=== PATIENT | female | born 1955 | race Caucasian/White ===

== ENCOUNTER → 2017-01-08 | Outpatient (CLI) | payer OTHER ==
--- NOTE | 2017-01-09 14:40 | MR ---
EXAM DATE: 01/08/17 PATIENT'S AGE: 61 Patient: AVNI LU Facility: [place], [place] : 1955 Study: MRI Shoulder Right [id number] 7:00:40 PM Ordering Physician: Gianluca Ruiz Pa-C Final Report: Indication: Right shoulder dislocation. Prior fall. Technique: Axial, sagittal oblique and coronal oblique T1, proton density, proton density fat-sat and T2 weighted images were obtained of the right shoulder without contrast administration. Comparison: Radiographs 12/02/2016. Findings: Rotator Cuff: Mild thinning of the distal supraspinatus and infraspinatus tendons. Mild tendinosis of the distal supraspinatus and moderate focal tendinosis of the distal infraspinatus tendon. There is no full-thickness tear of either distal tendon nor is there supraspinatus or infraspinatus muscle atrophy. Mild distal subscapularis tendinosis. No high-grade subscapularis tendon tear or muscle atrophy. . AC Joint and Coracoacromial Arch: Advanced AC joint degenerative arthrosis. Coracoclavicular ligament is intact. Acromial morphology is intermediate between type 2 and type 3. There is mild thickening of the coracoacromial ligament. No os acromiale. The lateral acromial thickness is approximately 6-7 mm. The acromiohumeral interval measures 6 mm. Minor subacromial-subdeltoid bursal edema. The subcoracoid interval is adequate patent. Minor subcoracoid bursal edema. . Biceps-Labral Complex: There is attenuation of the proximal intraarticular long head of the biceps tendon which is not clearly seen as an intact structure over its proximal intraarticular extent. Probable prior tearing of the superior and posterior superior aspects of the labrum with labral fraying. The anterior- inferior labrum is not well evaluated given the lack of joint distention and close approximation of the anterior band of the inferior glenohumeral ligament though appears grossly intact. The posterior to posterior-inferior labrum appears intact. . Glenohumeral Joint Space: No effusion. No significant malalignment. No focal articular cartilage defect. . Bones and Soft Tissues: There is an acute or subacute impaction fracture involving the posterior aspect of the humeral head with associated marrow edema. This supports changes related to a prior anterior shoulder dislocation. There is no bony Bankart fracture. No abnormality within the suprascapular or spinoglenoid notches nor within the quadrilateral space. Impression: 1. Mild impaction fracture involving the posterior aspect of the right humeral head likely related to prior anterior shoulder dislocation. 2. Tendinosis of the rotator cuff tendons with thinning of the distal supraspinatus and infraspinatus tendons but no full-thickness rotator cuff tear. 3. Likely chronically torn proximal long head of the biceps tendon. 4. More remote tearing of the superior to posterior superior labrum. The anterior-inferior labrum is not well evaluated given the lack of joint distention and close approximation of the anterior band of the inferior glenohumeral ligament though appears grossly intact. 5. Advanced AC joint degenerative arthrosis changes. Dictated by Lizandro Quan MD @ Jan 09 2017 9:58AM (Electronic Signature) Report Signed by Proxy and Original Signed Document filed in the Medical Record. KEEGAN
== END ==
LOC: MW.MRI 16:10
PROVIDERS: ATTEND Physician Assistant
DX: S43.004A Unspecified dislocation of right shoulder joint, initial encounter (principal); S42.201A Unspecified fracture of upper end of right humerus, initial encounter for closed fracture; M75.101 Unspecified rotator cuff tear or rupture of right shoulder, not specified as traumatic; M25.511 Pain in right shoulder
CPT/HCPCS: 73221-26-RT; 73221-RT

== ENCOUNTER 2020-07-25 08:03 | Day surgery (SDC) | payer OTHER ==
[~2020-07-25 08:03] MED LIST: Lactated Ringers 1,000 ML IV SCH; Lidocaine 2% 5 ML SDV ONE; Propofol 200 MG/20 ML SDV ONE; Sodium Chloride 0.9% 10 ML SDV IV PRN; Sodium Chloride 0.9% 10 ML Syringe FLUSH PRN; Sodium Chloride 0.9% 2.5 ML Syringe FLUSH PRN; fentaNYL 100 MCG/2 ML SDV ONE
--- NOTE | 2020-07-25 08:55 | PCM.PREANE ---
Preanesthetic Assessment - Anesthesia/Transfusion/Family Hx Anesthesia History: Prior Anesthesia Without Reaction Other Type of Anesthesia Reaction Comment: Denies any known problem with anesthesia in past Family History of Anesthesia Reaction: No Transfusion History: Prior Transfusion Without Reaction - Review of Systems General: No Symptoms Pulmonary: No Symptoms Cardiovascular: No Symptoms Gastrointestinal: No Symptoms Neurological: No Symptoms Other: Reports: None - Physical Assessment NPO Status Date: 07/24/20 Vital Signs: Last Vital Signs Temp 96.8 F L 07/25/20 08:25 Pulse 95 07/25/20 08:25 Resp 15 07/25/20 08:25 BP 141/91 H 07/25/20 08:25 Pulse Ox 95 07/25/20 08:25 Height: 5 ft 1 in Weight: 96.615 kg ASA Class: 2 Mental Status: Alert & Oriented x3 Airway Class: Mallampati = 2 Dentition: Reports: Normal Dentition ROM/Head Extension: Full Lungs: Clear to Auscultation, Normal Respiratory Effort Cardiovascular: Regular Rate, Regular Rhythm - Allergies Allergies/Adverse Reactions: Allergies Allergy/AdvReac Type Severity Reaction Status Date / Time codeine Allergy Difficulty Verified 07/19/20 10:54 Breathing hydromorphone HCl Allergy Anaphylactic Verified 07/19/20 10:54 [From Dilaudid] Shock meperidine HCl [From Demerol] Allergy Difficulty Verified 07/19/20 10:54 Breathing morphine Allergy Anaphylactic Verified 07/19/20 10:54 Shock penicillin Allergy Difficulty Verified 07/19/20 10:54 Breathing phenytoin [From Dilantin] Allergy Itching Verified 07/19/20 10:58 Sulfa (Sulfonamide Allergy Anaphylactic Verified 07/19/20 10:54 Antibiotics) Shock tramadol Allergy Itching Verified 07/19/20 10:58 Plastic tape Allergy Blisters Uncoded 07/19/20 10:54 Seasonal allergies Allergy Difficulty Uncoded 12/02/16 12:41 Breathing - Blood Blood Available: No - Acknowledgements Anesthesia Type Planned: General Anesthesia (tiva) Pt an Appropriate Candidate for the Planned Anesthesia: Yes Alternatives and Risks of Anesthesia Discussed w Pt/Guardian: Yes Pt/Guardian Understands and Agrees with Anesthesia Plan: Yes Additional Comments: PMH: 3 primary cancers, kidney r breast and l breast, RA- inactive, asthma- seasonal-inactive, PLAN: tiva PreAnesthesia Questionnaire HEENT History: Reports: Other (See Below) Other HEENT History: wears glasses Cardiovascular History: Reports: None Respiratory History: Reports: Asthma Other Respiratory History: seasonal asthma Gastrointestinal History: Reports: None Genitourinary History: Reports: Other (See Below) Other Genitourinary History: pt states right kidney was removed due to renal cancer 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: Musculoskeletal History: Reports: RA Other Musculoskeletal History: hx rt foot fx, hx left ankle fx Neurological History: Reports: None Psychiatric History: Reports: None Endocrine/Metabolic History: Reports: Obesity/BMI 30+ Hematologic History: Reports: Blood Transfusion(s) Other Hematologic History: Unsure if she has received blood transfusion ("maybe with Kidney surgery, Daughter Candi may know") Immunologic History: Reports: None Oncologic (Cancer) History: Reports: Breast, Renal Dermatologic History: Reports: None - Past Surgical History GI Surgical History: Reports: Appendectomy, Cholecystectomy, Hernia, Inguinal Other GI Surgeries/Procedures: inguinal hernia repair with mesh Other Endocrine Surgeries/Procedures: "total thyroidectomy" Other Musculoskeletal Surgeries/Procedures:: foot surgery - SUBSTANCE USE Smoking Status *Q: Never Smoker Recreational Drug Use History: No - HOME MEDS Home Medications: Home Meds Calcium Carbonate/Vitamin D3 [Calcium 600 + D Tablet] 1 tab PO DAILY 07/27/15 [History] Cyanocobalamin (Vitamin B12) [Vitamin B12] 1 injection IM ASDIRECTED 08/14/18 [History] Diclofenac Sodium 50 mg PO DAILY PRN 07/19/20 [History] Diclofenac Sodium [Voltaren 1% Gel] 1 applic TOP ASDIRECTED PRN 07/19/20 [History] Loratadine/Pseudoephedrine [Claritin-D 24 Hour Tablet] 1 tab PO DAILY PRN 07/19/20 [History] Pregabalin 50 mg PO DAILY PRN 07/19/20 [History] - CURRENT (IN HOUSE) MEDS Current Meds: Current Medications Lactated Ringer's (Ringers, Lactated) 1,000 mls @ 125 mls/hr IV ASDIRECTED RICH Sodium Chloride (Saline Flush) 10 ml FLUSH ASDIRECTED PRN PRN Reason: Keep Vein Open Sodium Chloride (Saline Flush) 2.5 ml FLUSH ASDIRECTED PRN PRN Reason: Keep Vein Open Sodium Chloride (Saline Flush) 10 ml FLUSH ASDIRECTED PRN PRN Reason: Keep Vein Open Sodium Chloride (Saline Flush) 2.5 ml FLUSH ASDIRECTED PRN PRN Reason: Keep Vein Open Sodium Chloride (Normal Saline) 10 ml IV ASDIRECTED PRN PRN Reason: IV Use Discontinued Medications Fentanyl (Sublimaze) Confirm Administered Dose 100 mcg .ROUTE .STK-MED ONE Stop: 07/25/20 07:07 Lidocaine (Xylocaine-Mpf 2%) Confirm Administered Dose 5 ml .ROUTE .STK-MED ONE Stop: 07/25/20 07:07 Propofol (Diprivan 20 Ml) Confirm Administered Dose 400 mg .ROUTE .STK-MED ONE Stop: 07/25/20 07:07
[2020-07-25] MEDS ORDERED: Glycopyrrolate 0.2 MG/ML SDV ONE (09:52)
--- NOTE | 2020-07-25 10:28 | PCM.POSTAN ---
POST ANESTHESIA ASSESSMENT - MENTAL STATUS Mental Status: Alert, Oriented - VITAL SIGNS Vital Signs: Last Vital Signs Temp 98.6 F 07/25/20 10:07 Pulse 71 07/25/20 10:18 Resp 11 L 07/25/20 10:18 BP 109/64 07/25/20 10:18 Pulse Ox 99 07/25/20 10:18 - RESPIRATORY Respiratory Status: Respiratory Rate WNL, Airway Patent, O2 Saturation Stable - CARDIOVASCULAR CV Status: Pulse Rate WNL, Blood Pressure Stable - GASTROINTESTINAL GI Status: No Symptoms - POST OP HYDRATION Hydration Status: Adequate & Stable
--- NOTE | 2020-07-25 10:29 | PCM48HPAN ---
Post Anesthesia Note - EVALUATION WITHIN 48HRS OF ANESTHETIC Vital Signs in Normal Range: Yes Patient Participated in Evaluation: Yes Respiratory Function Stable: Yes Airway Patent: Yes Cardiovascular Function Stable: Yes Hydration Status Stable: Yes Pain Control Satisfactory: Yes Nausea and Vomiting Control Satisfactory: Yes Mental Status Recovered: Yes Vital Signs: Last Vital Signs Temp 98.6 F 07/25/20 10:07 Pulse 71 07/25/20 10:18 Resp 11 L 07/25/20 10:18 BP 109/64 07/25/20 10:18 Pulse Ox 99 07/25/20 10:18
--- NOTE | 2020-07-25 10:46 | PCM.OPNOTE ---
- General Post-Op/Procedure Note Date of Surgery/Procedure: 07/25/20 Operative Procedure(s): Diagnostic colonoscopy Findings: Grade IV hemorrhoids, sigmoid colon polyps, diverticulosis Pre Op Diagnosis: History of colon polyp Post-Op Diagnosis: Diverticulosis, sigmoid colon polyp, grade IV hemorrhoid Anesthesia Technique: [facility] Primary Surgeon: Milly Buitrago Condition: Good Free Text/Narrative:: Intake & Output 07/24/20 07/25/20 07/25/20 22:59 06:59 14:59 Intake Total 550 Balance 550
[2020-07-25 11:13] VITALS: BP 140/74; PULSE 61
--- NOTE | 2020-07-26 23:00 | OR ---
SURGEON: MILLY BUITRAGO MD DATE OF PROCEDURE: 07/25/2020 PREOPERATIVE DIAGNOSIS: History of colon polyps. POSTOPERATIVE DIAGNOSES: 1. Grade 4 hemorrhoids. 2. Diverticulosis. 3. Sigmoid colon polyp. PRIMARY SURGEON: Milly Buitrago MD ANESTHESIA: MAC. INSTRUMENT USED: Olympus colonoscope. EXTENT OF EXAM: To the cecum. PREPARATION: Good. LIMITATIONS: None. INDICATIONS FOR EXAMINATION: The patient is a 64-year-old female who presents for a repeat colonoscopy. The patient and I discussed the procedure; expected perioperative course; and risks including bleeding, infection, or damage to surrounding structures. The patient verbalized understanding and wishes to proceed. PROCEDURE IN DETAIL: The patient was brought into the endoscopy suite and placed in a left lateral decubitus position. A time-out was completed verifying the patient's name, age, date of , allergies, and procedure to be performed. Monitored anesthesia care was induced and continuous oxygen was provided via nasal cannula throughout the procedure. After adequate sedation was achieved, a digital rectal exam was performed. This exam revealed grade 4 hemorrhoids. A well-lubricated colonoscope was inserted in the rectum and advanced under direct visualization to the level of the cecum. The cecum was identified by both visual and anatomic landmarks. A photograph was taken of the cecal cap; however, I was unable to retroflex the scope within the cecum due to looping of the scope more proximally. The scope was then fully withdrawn while examining the color, texture, anatomy, and integrity of the mucosa from the cecum to the anal canal. The patient was found to have a small sessile polyp within the sigmoid colon. This was removed in piecemeal fashion using cold biopsy forceps. She also had some small scattered diverticula within the sigmoid colon. The scope was then brought into the rectum and retroflexed to allow visualization of the anal canal opening. This appeared normal and a photograph was taken. The scope was then straightened out and fully withdrawn. The cecum to anus time was 11 minutes. The patient tolerated the procedure well and was transferred to the PACU in stable condition. ENDOSCOPIC DIAGNOSES: 1. Grade 4 hemorrhoids. 2. Diverticulosis. 3. Sigmoid colon polyp. RECOMMENDATIONS: Follow up in clinic in 2 weeks. ESAU MANCERA /[id number]
== END 2020-07-25 10:55 | disposition home or self-care (01) ==
LOC: MW.SDS 08:03
PROVIDERS: ATTEND Surgery
DX: Z12.11 Encounter for screening for malignant neoplasm of colon (principal); K64.3 Fourth degree hemorrhoids; K57.30 Diverticulosis of large intestine without perforation or abscess without bleeding; K63.5 Polyp of colon; J45.909 Unspecified asthma, uncomplicated; D17.24 Benign lipomatous neoplasm of skin and subcutaneous tissue of left leg; R22.1 Localized swelling, mass and lump, neck; R22.41 Localized swelling, mass and lump, right lower limb; E66.9 Obesity, unspecified; Z80.0 Family history of malignant neoplasm of digestive organs; Z98.890 Other specified postprocedural states; Z88.5 Allergy status to narcotic agent; Z88.2 Allergy status to sulfonamides; Z88.0 Allergy status to penicillin; Z88.8 Allergy status to other drugs, medicaments and biological substances; Z86.010 Personal history of colon polyps; Z68.41 Body mass index [BMI] 40.0-44.9, adult
CPT/HCPCS: 45380; 88305; J2001; J2704; J3010; J3490; J7120; 00812

== ENCOUNTER 2020-07-27 07:48 | Day surgery (SDC) | payer OTHER ==
[~2020-07-27 07:48] MED LIST changes: -Lidocaine 2% 5 ML SDV ONE; -Propofol 200 MG/20 ML SDV ONE; +ceFAZolin 2 GM in Premix Bag 1 BAG IV ONE; -fentaNYL 100 MCG/2 ML SDV ONE
[2020-07-27] MEDS ORDERED: Ondansetron 4 MG/2 ML SDV ONE (09:24)
[2020-07-27] MEDS ORDERED: Propofol 200 MG/20 ML SDV ONE ×2 (09:24→10:18)
[2020-07-27] MEDS ORDERED: fentaNYL 100 MCG/2 ML SDV ONE (09:24)
[2020-07-27] MEDS ORDERED: Midazolam 1 MG/ML 2 ML SDV ONE (09:25)
--- NOTE | 2020-07-27 09:33 | PCM.PREANE ---
Preanesthetic Assessment - Anesthesia/Transfusion/Family Hx Anesthesia History: Prior Anesthesia Without Reaction Other Type of Anesthesia Reaction Comment: "at [place], was given morphine & they lost me for 7 minutes" Family History of Anesthesia Reaction: No Transfusion History: No Prior Transfusion(s) - Review of Systems General: No Symptoms Pulmonary: No Symptoms Cardiovascular: No Symptoms Gastrointestinal: No Symptoms Neurological: No Symptoms Other: Reports: None - Physical Assessment NPO Status Date: 07/26/20 Height: 5 ft 1 in Weight: 96.615 kg ASA Class: 2 Mental Status: Alert & Oriented x3 Airway Class: Mallampati = 2 ROM/Head Extension: Full Lungs: Clear to Auscultation, Normal Respiratory Effort Cardiovascular: Regular Rate, Regular Rhythm - Lab Values: Laboratory Last Values SARS-CoV-2 RNA ([facility]) NEGATIVE (NEGATIVE) 07/27/20 08:00 - Allergies Allergies/Adverse Reactions: Allergies Allergy/AdvReac Type Severity Reaction Status Date / Time codeine Allergy Difficulty Verified 07/25/20 11:26 Breathing hydromorphone HCl Allergy Anaphylactic Verified 07/25/20 11:26 [From Dilaudid] Shock meperidine HCl [From Demerol] Allergy Difficulty Verified 07/25/20 11:26 Breathing morphine Allergy Anaphylactic Verified 07/25/20 11:26 Shock penicillin Allergy Difficulty Verified 07/25/20 11:26 Breathing phenytoin [From Dilantin] Allergy Itching Verified 07/25/20 11:26 Sulfa (Sulfonamide Allergy Anaphylactic Verified 07/25/20 11:26 Antibiotics) Shock tramadol Allergy Itching Verified 07/25/20 11:26 Plastic tape Allergy Blisters Uncoded 07/19/20 10:54 Seasonal allergies Allergy Difficulty Uncoded 12/02/16 12:41 Breathing - Blood Blood Available: No - Anesthesia Plan Pre-Op Medication Ordered: None - Acknowledgements Anesthesia Type Planned: General Anesthesia (LMA) Pt an Appropriate Candidate for the Planned Anesthesia: Yes Alternatives and Risks of Anesthesia Discussed w Pt/Guardian: Yes Pt/Guardian Understands and Agrees with Anesthesia Plan: Yes Additional Comments: pmh s/p bilat breast Ca, s/p nephrectomy for renal cell ca, RA- inactive hands no meds, multiple allergies PLAN: ga/lma, supine and lateral PreAnesthesia Questionnaire HEENT History: Reports: Other (See Below) Other HEENT History: wears glasses Cardiovascular History: Reports: None Respiratory History: Reports: Asthma Other Respiratory History: seasonal asthma Gastrointestinal History: Reports: Colon Polyp Genitourinary History: Reports: Other (See Below) Other Genitourinary History: pt states right kidney was removed due to renal cancer 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: Musculoskeletal History: Reports: Arthritis, Fracture Other Musculoskeletal History: hx fx left ankle Neurological History: Reports: None Psychiatric History: Reports: None Endocrine/Metabolic History: Reports: Obesity/BMI 30+ Hematologic History: Reports: None Immunologic History: Reports: None Oncologic (Cancer) History: Reports: Breast, Renal Dermatologic History: Reports: None - Past Surgical History Head Surgeries/Procedures: Reports: None HEENT Surgical History: Reports: Tonsillectomy Cardiovascular Surgical History: Reports: None Respiratory Surgical History: Reports: None GI Surgical History: Reports: Appendectomy, Cholecystectomy, Colonoscopy, Hernia, Inguinal Other GI Surgeries/Procedures: inguinal hernia repair with mesh Female Surgical History: Reports: Breast Biopsy, Section, Hysterectomy, Mastectomy, Nephrectomy, Salpingo-Oophorectomy, Tubal Ligation Other Female Surgeries/Procedures: rt nephrectomy for cancer, moe mastectomy for cancer Endocrine Surgical History: Reports: Thyroidectomy Other Endocrine Surgeries/Procedures: thyroidectomy"right" Neurological Surgical History: Reports: None Musculoskeletal Surgical History: Reports: Shoulder Surgery Other Musculoskeletal Surgeries/Procedures:: foot surgery Other Oncologic Surgeries/Procedures: Bilateral mastectomy, rt nephrectomy Dermatological Surgical History: Reports: None - SUBSTANCE USE Smoking Status *Q: Never Smoker - HOME MEDS Home Medications: Home Meds Calcium Carbonate/Vitamin D3 [Calcium 600 + D Tablet] 1 tab PO DAILY 07/27/15 [History] Cyanocobalamin (Vitamin B12) [Vitamin B12] 1 injection IM ASDIRECTED 08/14/18 [History] Diclofenac Sodium 50 mg PO DAILY PRN 07/19/20 [History] Diclofenac Sodium [Voltaren 1% Gel] 1 applic TOP ASDIRECTED PRN 07/19/20 [History] Loratadine/Pseudoephedrine [Claritin-D 24 Hour Tablet] 1 tab PO DAILY PRN 07/19/20 [History] Pregabalin 50 mg PO DAILY PRN 07/19/20 [History] - CURRENT (IN HOUSE) MEDS Current Meds: Current Medications Lactated Ringer's (Ringers, Lactated) 1,000 mls @ 125 mls/hr IV ASDIRECTED RICH Last Admin: 07/27/20 09:06 Dose: 125 mls/hr Documented by: Sodium Chloride (Saline Flush) 2.5 ml FLUSH ASDIRECTED PRN PRN Reason: Keep Vein Open Sodium Chloride (Normal Saline) 10 ml IV ASDIRECTED PRN PRN Reason: IV Use Sodium Chloride (Saline Flush) 10 ml FLUSH ASDIRECTED PRN PRN Reason: Keep Vein Open Discontinued Medications Fentanyl (Sublimaze) Confirm Administered Dose 100 mcg .ROUTE .STK-MED ONE Stop: 07/27/20 09:25 Cefazolin Sodium/Dextrose 2 gm (/ Premix) 50 mls @ 100 mls/hr IV ONETIME ONE Stop: 07/24/20 09:20 Midazolam HCl (Versed 1 Mg/Ml) Confirm Administered Dose 2 mg .ROUTE .STK-MED ONE Stop: 07/27/20 09:26 Ondansetron HCl (Zofran) Confirm Administered Dose 4 mg .ROUTE .STK-MED ONE Stop: 07/27/20 09:25 Propofol (Diprivan 20 Ml) Confirm Administered Dose 200 mg .ROUTE .STK-MED ONE Stop: 07/27/20 09:25
[2020-07-27] MEDS ORDERED: Octyl 2-Cyanoacrylate 1 Tube ONE ×2 (10:07→10:10)
[2020-07-27] MEDS ORDERED: Lidocaine 1% 20 ML MDV ONE (10:07)
[2020-07-27] MEDS ORDERED: Bupivacaine 0.5% 30 ML SDV ONE ×2 (10:07→10:10)
[2020-07-27] MEDS ORDERED: Clindamycin Phosphate in D5W 50 ML ONE (10:29)
--- NOTE | 2020-07-27 12:18 | PCM.OPNOTE ---
- General Post-Op/Procedure Note Date of Surgery/Procedure: 07/27/20 Operative Procedure(s): Excision right neck mass, left thigh mass x 2, right posterior thigh mass Findings: right neck mass: 2 x 1 x 0.5 cm superior left leg mass: 6 x 1 x 0.5 cm inferior left leg mass: 3 x 2.5 x 1 cm right leg mass 7 x 3 x 1 cm Pre Op Diagnosis: Lipoma right neck, left leg x2, right posterior leg Post-Op Diagnosis: same Anesthesia Technique: General LMA Primary Surgeon: Milly Buitrago Fluid Replacement, Intraop: 1,300 EBL in mLs: 10 Condition: Good
--- NOTE | 2020-07-27 12:36 | PCM.POSTAN ---
POST ANESTHESIA ASSESSMENT - MENTAL STATUS Mental Status: Alert - VITAL SIGNS Vital Signs: Last Vital Signs Temp 36.3 C 07/27/20 12:13 Pulse 65 07/27/20 12:27 Resp 10 L 07/27/20 12:27 BP 138/81 07/27/20 12:27 Pulse Ox 96 07/27/20 12:27 - RESPIRATORY Respiratory Status: Respiratory Rate WNL, Airway Patent, O2 Saturation Stable - CARDIOVASCULAR CV Status: Pulse Rate WNL, Blood Pressure Stable - GASTROINTESTINAL GI Status: No Symptoms - PAIN Pain Score: 0 - POST OP HYDRATION Hydration Status: Adequate & Stable - OBSERVATIONS Free Text/Narrative:: Doing well. Ready for discharge from PACU.
[2020-07-27 13:47] VITALS: BP 143/66; PULSE 46
--- NOTE | 2020-07-28 13:45 | OR ---
SURGEON: MILLY BUITRAGO MD DATE OF PROCEDURE: 07/27/2020 PREOPERATIVE DIAGNOSIS: Multiple lipomas. POSTOPERATIVE DIAGNOSIS: Multiple lipomas. PROCEDURE PERFORMED: Excision of right neck mass, left leg mass x2, right posterior leg mass x1. PRIMARY SURGEON: Milly Buitrago MD ANESTHESIA: General LMA. FLUIDS: 1300 mL of crystalloid. ESTIMATED BLOOD LOSS: 10 mL. FINDINGS: Right neck mass, 2 x 1 x 0.5 cm; superior left leg mass, 6 x 1 x 0.5 cm; inferior left leg mass, 3 x 2.5 x 1 cm; and right leg mass, 7 x 3 x 1 cm. COMPLICATIONS: None. INDICATIONS: The patient is a 64-year-old female who presented to my clinic with multiple lipomas. We have been monitoring these through imaging; however, the patient feels they are getting larger and changing. The decision was made to excise these. I explained the procedure, expected perioperative course, and risks. The patient verbalized understanding and wishes to proceed. PROCEDURE IN DETAIL: The patient was brought into the OR and placed on the OR table in supine position. A time-out was completed verifying the patient's name, age, date of , allergies, and procedure to be performed. General LMA anesthesia was induced. I started my case by focusing on the right neck mass. The right neck and right upper shoulder were prepped and draped in usual standard fashion. The right neck mass had been marked preoperatively. I anesthetized the area overlying this mass with 0.5% Marcaine plain. A 15 blade was used to make an incision over the top of this mass. I then dissected down into the level of subcutaneous fat. There, I encountered a multiloculated piece of fat, which appeared to be separate from the surrounding soft tissue. This was dissected free from the surrounding tissue using sharp dissection with [place] scissors. It was placed on the back table and measured. It was 2 x 1 x 0.5 cm in size. It was sent to pathology, labeled as right neck mass. I irrigated my operative field with normal saline. Hemostasis was then achieved with electrocautery. I palpated the area thoroughly and could not feel any further masses. The wound was then closed with interrupted 3-0 Vicryl sutures in the subcutaneous fat space and the skin was closed with a running 4-0 Monocryl stitch. Dermabond and a sterile dressing were applied. I then turned my attention to the left anterior thigh. This area was prepped and draped in usual standard fashion. I anesthetized the area overlying the masses on the anterior thigh with 0.5% Marcaine plain. The superior left leg mass was slightly bigger. An incision was made over the top of this using a 15 blade. As soon as I made my incision, I immediately encountered a large globular piece of fat consistent with a lipoma. Gentle pressure was applied on either side of the incision and it was able to be a removed from inside of the wound. The mass was placed on the back table and measured 6 x 1 x 0.5 cm. I then packed this wound and turned my attention to the inferior left leg mass. Again, a 15 blade was used to make an incision over the top of the mass. I immediately encountered a fatty-appearing mass consistent with a lipoma. Gentle pressure was applied and the lipoma came out of the wound. It measured 3 x 2.5 x 1 cm in size. The superior left leg mass was sent to pathology, labeled as such and the inferior left leg mass was sent to pathology as well. Electrocautery was used to achieve hemostasis within the wounds. The wounds were both closed with running 4-0 Monocryl sutures. Dermabond and sterile dressings were applied. The drapes were taken down, and we prepped and draped the right posterior thigh with the leg elevated. I anesthetized the area overlying the mass with 0.5% Marcaine plain. A 15 blade was used to make an incision over top of the mass. This mass was multilobular and cautery was used to dissect it free from the surrounding structures. I was able to use blunt dissection with my finger as well. The mass was able to be from the surrounding tissues and was placed on the back table. It measured 7 x 3 x 1 cm in size. Electrocautery was used to achieve hemostasis within the wound. Interrupted 3-0 Vicryl sutures were used to close the space underneath the skin. The skin was then closed with a running 4-0 Monocryl stitch. Dermabond and a sterile dressing were applied. There were no margins associated with any of these mass excisions. The patient tolerated the procedure well, was extubated, and taken to PACU in stable condition. All counts were complete and correct at the end of the case. LEMEASH / MODL /[id number]
== END 2020-07-27 13:45 | disposition home or self-care (01) ==
LOC: MW.SDS 07:48
PROVIDERS: ATTEND Surgery
DX: D17.0 Benign lipomatous neoplasm of skin and subcutaneous tissue of head, face and neck (principal); D17.24 Benign lipomatous neoplasm of skin and subcutaneous tissue of left leg; D17.23 Benign lipomatous neoplasm of skin and subcutaneous tissue of right leg; J45.909 Unspecified asthma, uncomplicated; E66.9 Obesity, unspecified; Z20.828 Contact with and (suspected) exposure to other viral communicable diseases; Z01.812 Encounter for preprocedural laboratory examination; Z88.5 Allergy status to narcotic agent; Z88.6 Allergy status to analgesic agent; Z88.0 Allergy status to penicillin; Z88.2 Allergy status to sulfonamides; Z88.8 Allergy status to other drugs, medicaments and biological substances; Z79.899 Other long term (current) drug therapy; Z86.018 Personal history of other benign neoplasm; Z68.41 Body mass index [BMI] 40.0-44.9, adult
CPT/HCPCS: 21555; 27337; 27632; 87635; A9270; J2250; J2405; J2704; J3010; J3490; J7120; 00300; J2001; U0002